=== PATIENT | female | born 1940 | race Caucasian/White ===

== ENCOUNTER 2018-12-30 11:50 | Emergency (ER) | payer MEDICARE, OTHER ==
[~2018-12-30] VITALS: Ht 154.9 cm; Wt 75.9 kg
[~2018-12-30 11:50] MED LIST: ATOR20TA66 PO; FLAX100031 PO; FLO0.4C PO; IBUP-1986 PO; LANS30CA56 PO; LEVO25TA2 PO; LOSA25TA41 PO; MULT1TAB74 PO; PARO12.52 PO; TRAM50TA2 PO
[2018-12-30 11:53] VITALS: BP 117/81
[2018-12-30 12:28] LABS: BASOPHILS % (AUTO) 0.7 % (0-1); EOSINOPHILS # (AUTO) 0.1 X10'3 (0-0.9); EOSINOPHILS % (AUTO) 2.2 % (0-6); HEMATOCRIT 31.4 % (35.0-45.0); HEMOGLOBIN 10.8 g/dl (12.0-16.0); LYMPHOCYTES # (AUTO) 1.5 X10'3 (1.1-4.8); LYMPHOCYTES % (AUTO) 26.7 % (21-51); MEAN CORPUSCULAR HEMOGLOBIN 30.4 PG (27.0-31.0); MEAN CORPUSCULAR HGB CONC 34.4 g/dL (33.0-36.5); MEAN CORPUSCULAR VOLUME 88.2 FL (78-98); MEAN PLATELET VOLUME 7.3 FL (7.4-10.4); MONOCYTES # (AUTO) 0.5 X10'3 (0-0.9); MONOCYTES % (AUTO) 9.5 % (2-12); NEUTROPHILS # (AUTO) 3.4 X10'3 (1.8-7.7); NEUTROPHILS % (AUTO) 60.9 % (42-75); PLATELET COUNT 235 X10'3 (140-440); RED BLOOD COUNT 3.56 X10'6 (4.20-5.60); RED CELL DISTRIBUTION WIDTH 13.8 % (11.5-14.5); WHITE BLOOD COUNT 5.7 X10'3 (4.5-11.0)
[2018-12-30 12:44] LABS: ALANINE AMINOTRANSFERASE 22 U/L (12-78); ALBUMIN 3.7 G/DL (3.4-5.0); ALKALINE PHOSPHATASE 78 IU/L (46-116); ANION GAP 9 (8-16); ASPARTATE AMINO TRANSFERASE 24 U/L (10-37); BILIRUBIN,TOTAL 0.4 MG/DL (0.1-1.0); BLOOD UREA NITROGEN 18 MG/DL (7-18); BUN/CREATININE RATIO 11.5 (6.6-38.0); CALCIUM 9.4 MG/DL (8.5-10.1); CHLORIDE 101 MMOL/L (99-107); CREATININE 1.57 MG/DL (0.40-0.90); GLUCOSE 98 MG/DL (70-104); PARTIAL THROMBOPLASTIN TIME 26 SECONDS (22-32); POTASSIUM 3.4 MMOL/L (3.5-5.1); PROTHROMBIN TIME 10.1 SECONDS (9.0-12.0); SODIUM 138 MMOL/L (135-145); TOTAL CARBON DIOXIDE 27.8 MMOL/L (24-32); TOTAL PROTEIN 7.3 G/DL (6.4-8.2); eGFR 32 ML/MIN
== END 2018-12-30 15:27 | disposition left against medical advice (07) ==
LOC: ER 11:51
DX: R07.9 Chest pain, unspecified (principal); Z53.21 Procedure and treatment not carried out due to patient leaving prior to being seen by health care provider
CPT/HCPCS: 36415; 71045; 80053; 84484; 85025; 85610; 85730; 93005

== ENCOUNTER 2019-11-11 10:10 | Emergency (ER) | payer MEDICARE, OTHER ==
[~2019-11-11] VITALS: Ht 154.9 cm; Wt 56.9 kg
[~2019-11-11 10:10] MED LIST changes: -FLO0.4C PO
--- NOTE | 2019-11-11 10:39 | NUR ---
DR. SHOOK AT BEDSIDE.
[2019-11-11] MEDS ORDERED: ondansetron/PF 4mg/2ml inj IV ONE ×2 (10:45→12:35)
[2019-11-11] MEDS ORDERED: morphine 4 MG/ML inj SYRINge IV ONE (10:45)
[2019-11-11] MEDS ORDERED: normal saline 1000ML IV soln IVB ONE (10:45)
[2019-11-11 10:55] LABS: BASOPHILS # (AUTO) 0.1 X10'3 (0-0.2); BASOPHILS % (AUTO) 0.8 % (0-1); EOSINOPHILS # (AUTO) 0.1 X10'3 (0-0.9); EOSINOPHILS % (AUTO) 0.9 % (0-6); HEMOGLOBIN 11.6 g/dl (12.0-16.0); LYMPHOCYTES # (AUTO) 1.2 X10'3 (1.1-4.8); LYMPHOCYTES % (AUTO) 15.2 % (21-51); MEAN CORPUSCULAR HEMOGLOBIN 29.6 PG (27.0-31.0); MEAN CORPUSCULAR HGB CONC 33.3 g/dL (33.0-36.5); MEAN PLATELET VOLUME 7.2 FL (7.4-10.4); MONOCYTES # (AUTO) 0.7 X10'3 (0-0.9); MONOCYTES % (AUTO) 8.9 % (2-12); NEUTROPHILS # (AUTO) 5.7 X10'3 (1.8-7.7); NEUTROPHILS % (AUTO) 74.2 % (42-75); PLATELET COUNT 236 X10'3 (140-440); RED BLOOD COUNT 3.93 X10'6 (4.20-5.60); RED CELL DISTRIBUTION WIDTH 13.8 % (11.5-14.5); WHITE BLOOD COUNT 7.6 X10'3 (4.5-11.0)
[2019-11-11 11:08] LABS: ALANINE AMINOTRANSFERASE 27 U/L (12-78); ALBUMIN 4.2 G/DL (3.4-5.0); ALBUMIN/GLOBULIN RATIO 1.2 (1.1-1.5); ALKALINE PHOSPHATASE 84 IU/L (46-116); AMYLASE 61 U/L (25-115); ANION GAP 10 (8-16); ASPARTATE AMINO TRANSFERASE 30 U/L (10-37); BILIRUBIN,TOTAL 0.6 MG/DL (0.1-1.0); BLOOD UREA NITROGEN 23 MG/DL (7-18); CALCIUM 9.3 MG/DL (8.5-10.1); CHLORIDE 99 MMOL/L (99-107); CREATININE 1.44 MG/DL (0.40-0.90); GLUCOSE 93 MG/DL (70-104); LIPASE 103 U/L (73-393); SODIUM 134 MMOL/L (135-145); TOTAL CARBON DIOXIDE 25.5 MMOL/L (24-32); TOTAL PROTEIN 7.7 G/DL (6.4-8.2); eGFR 35 ML/MIN
[2019-11-11 11:10] LABS: POTASSIUM 5.1 MMOL/L (3.5-5.1)
[2019-11-11 11:19] LABS: CLARITY,URINE CLEAR (Clear); COLOR,URINE STRAW (Yellow); GLUCOSE, URINE NEGATIVE (Neg); KETONES,URINE NEGATIVE (Neg); LEUKOCYTE ESTERASE ,URINE NEGATIVE (Neg); NITRITES, URINE NEGATIVE (Neg); OCCULT BLOOD,URINE SMALL (Neg); PROTEIN,URINE NEGATIVE (Neg); UROBILINOGEN,URINE 0.2 E.U/dL (0.2-1.0)
[2019-11-11 11:21] LABS: UA COLLECTION TYPE STRAIGHT CATH
[2019-11-11 11:25] LABS: BACTERIA,URINE FEW /HPF (Neg); RBC,URINE 0-2 /HPF (0-2); SQUAMOUS EPITHELIAL CELL,UR NONE SEEN /LPF (FEW); WBC,URINE 0-4 /HPF (0-4)
[2019-11-11 11:26] LABS: AMORPHOUS PHOSPHATES 1+; MUCUS STRANDS NONE SEEN /LPF (Neg); TRANSITIONAL EPI CELLS,URINE FEW /HPF
[2019-11-11] MEDS ORDERED: ketorolac trometh. 30mg/ml inj. IV ONE (12:35)
[2019-11-11] MEDS ORDERED: proCHLORperazine 10 MG/2 ml inj IV ONE (13:00)
[2019-11-11] MEDS ORDERED: ONDA4TAB12 PO (13:26)
[2019-11-11] MEDS ORDERED: HYDR-4384 PO (13:26)
[2019-11-11 13:51] VITALS: BP 139/65
== END 2019-11-11 14:00 | disposition home or self-care (01) ==
LOC: ER 10:10
DX: N20.0 Calculus of kidney (principal); R11.2 Nausea with vomiting, unspecified; Z90.49 Acquired absence of other specified parts of digestive tract; Z88.0 Allergy status to penicillin; Z88.5 Allergy status to narcotic agent; Z88.1 Allergy status to other antibiotic agents; Z79.899 Other long term (current) drug therapy
CPT/HCPCS: 36415; 74176; 80053; 81001; 82150; 83690; 85025; 93005; 96361; 96374; 96375; 96376; 99284; J0780; J1885; J2270; J2405; J7030

== ENCOUNTER 2019-11-23 15:47 | Emergency (ER) | payer MEDICARE, OTHER ==
[~2019-11-23] VITALS: Ht 154.9 cm; Wt 63.6 kg
[~2019-11-23 15:47] MED LIST changes: +ONDA4TAB12 PO
[2019-11-23] MEDS ORDERED: lactulose 20gm/30ml cup PO ONE (15:55)
[2019-11-23] MEDS ORDERED: magnesium hydroxide 30ml (MOM) UD suspension PO ONE (15:55)
[2019-11-23] MEDS ORDERED: LORazepam 1 MG tablet PO ONE (15:55)
--- NOTE | 2019-11-23 16:05 | NUR ---
PT IS A POOR HISTORIAN DT MEMORY ISSUES. SHOULD BE HERE SHORTLY
[2019-11-23] MEDS ORDERED: methylnaltrexone br 12mg/0.6ml inj***SubQ only SQ ONE (16:35)
--- NOTE | 2019-11-23 16:38 | NUR ---
tay [phone] [facility] [phone] call with changes or update
[2019-11-23] MEDS ORDERED: morphine 4 MG/ML inj SYRINge IV ONE (16:40)
[2019-11-23] MEDS ORDERED: normal saline 1000ML IV soln IVB ONE (16:40)
[2019-11-23] MEDS ORDERED: ondansetron/PF 4mg/2ml inj IV ONE (16:40)
[2019-11-23 17:08] LABS: BASOPHILS # (AUTO) 0.1 X10'3 (0-0.2); EOSINOPHILS # (AUTO) 0.1 X10'3 (0-0.9); EOSINOPHILS % (AUTO) 1.7 % (0-6); HEMATOCRIT 34.4 % (35.0-45.0); HEMOGLOBIN 11.7 g/dl (12.0-16.0); LYMPHOCYTES # (AUTO) 1.7 X10'3 (1.1-4.8); LYMPHOCYTES % (AUTO) 22.7 % (21-51); MEAN CORPUSCULAR HEMOGLOBIN 29.9 PG (27.0-31.0); MEAN CORPUSCULAR HGB CONC 34.1 g/dL (33.0-36.5); MEAN CORPUSCULAR VOLUME 87.8 FL (78-98); MEAN PLATELET VOLUME 7.1 FL (7.4-10.4); MONOCYTES # (AUTO) 0.8 X10'3 (0-0.9); MONOCYTES % (AUTO) 11.1 % (2-12); NEUTROPHILS # (AUTO) 4.7 X10'3 (1.8-7.7); NEUTROPHILS % (AUTO) 63.5 % (42-75); PLATELET COUNT 263 X10'3 (140-440); RED BLOOD COUNT 3.91 X10'6 (4.20-5.60); RED CELL DISTRIBUTION WIDTH 13.4 % (11.5-14.5); WHITE BLOOD COUNT 7.4 X10'3 (4.5-11.0)
[2019-11-23] MEDS ORDERED: HYDROcodone/acetaminophen 5mg/325mg tablet PO ONE (17:25)
[2019-11-23] MEDS ORDERED: QUEtiapine 25mg tablet PO SCH (17:25)
[2019-11-23 17:26] LABS: ALANINE AMINOTRANSFERASE 26 U/L (12-78); ALBUMIN 3.9 G/DL (3.4-5.0); ALBUMIN/GLOBULIN RATIO 1.1 (1.1-1.5); ALKALINE PHOSPHATASE 89 IU/L (46-116); ANION GAP 11 (8-16); ASPARTATE AMINO TRANSFERASE 18 U/L (10-37); BILIRUBIN,TOTAL 0.3 MG/DL (0.1-1.0); BLOOD UREA NITROGEN 37 MG/DL (7-18); BUN/CREATININE RATIO 24.5 (6.6-38.0); CHLORIDE 103 MMOL/L (99-107); CREATININE 1.51 MG/DL (0.40-0.90); GLUCOSE 92 MG/DL (70-104); SODIUM 137 MMOL/L (135-145); TOTAL CARBON DIOXIDE 23.5 MMOL/L (24-32); TOTAL PROTEIN 7.5 G/DL (6.4-8.2); eGFR 33 ML/MIN
[2019-11-23 17:35] VITALS: BP 139/80
[2019-11-23 18:30] LABS: CLARITY,URINE CLEAR (Clear); COLOR,URINE YELLOW (Yellow); GLUCOSE, URINE NEGATIVE (Neg); KETONES,URINE NEGATIVE (Neg); LEUKOCYTE ESTERASE ,URINE NEGATIVE (Neg); NITRITES, URINE NEGATIVE (Neg); OCCULT BLOOD,URINE SMALL (Neg); PH,URINE 6.5 (4.8-8.0); PROTEIN,URINE NEGATIVE (Neg); UROBILINOGEN,URINE 0.2 E.U/dL (0.2-1.0)
[2019-11-23 18:44] LABS: UA COLLECTION TYPE OTHER
[2019-11-23 18:46] LABS: HYALINE CASTS 0-3 /LPF (NEGATIVE); MUCUS STRANDS FEW /LPF (Neg); SQUAMOUS EPITHELIAL CELL,UR FEW /LPF (FEW)
[2019-11-23 18:47] LABS: BACTERIA,URINE FEW /HPF (Neg); WBC,URINE 0-4 /HPF (0-4)
== END 2019-11-23 18:33 | disposition home or self-care (01) ==
LOC: ER 15:48
DX: N20.0 Calculus of kidney (principal); K59.00 Constipation, unspecified; F03.90 Unspecified dementia, unspecified severity, without behavioral disturbance, psychotic disturbance, mood disturbance, and anxiety; Z90.49 Acquired absence of other specified parts of digestive tract; Z88.0 Allergy status to penicillin; Z88.5 Allergy status to narcotic agent; Z79.899 Other long term (current) drug therapy
CPT/HCPCS: 36415; 80053; 81001; 85025; 96374; 96375; 99284; J2270; J2405; J7030

== ENCOUNTER 2020-08-08 09:00 | Emergency (ER) | payer MEDICARE, OTHER ==
[~2020-08-08] VITALS: Ht 157.5 cm; Wt 60.0 kg
[~2020-08-08 09:00] MED LIST changes: +MULT-620 PO; -MULT1TAB74 PO; -PARO12.52 PO; +PARO12.53 PO
[2020-08-08] MEDS ORDERED: LORazepam 2 mg/ml vial IV ONE (09:20)
[2020-08-08] MEDS ORDERED: normal saline 1000ML IV soln IV ONE (09:20)
[2020-08-08 09:36] LABS: EOSINOPHILS # (AUTO) 0.2 X10'3 (0-0.9); HEMATOCRIT 35.7 % (35.0-45.0); LYMPHOCYTES # (AUTO) 1.3 X10'3 (1.1-4.8)
[2020-08-08 09:38] LABS: BASOPHILS # (AUTO) 0.1 X10'3 (0-0.2); BASOPHILS % (AUTO) 1.2 % (0-1); EOSINOPHILS % (AUTO) 3.1 % (0-6); LYMPHOCYTES % (AUTO) 21.1 % (21-51); MEAN CORPUSCULAR HEMOGLOBIN 29.9 PG (27.0-31.0); MEAN CORPUSCULAR HGB CONC 33.7 g/dL (33.0-36.5); MEAN CORPUSCULAR VOLUME 88.7 FL (78-98); MEAN PLATELET VOLUME 7.2 FL (7.4-10.4); MONOCYTES # (AUTO) 0.7 X10'3 (0-0.9); MONOCYTES % (AUTO) 10.7 % (2-12); NEUTROPHILS # (AUTO) 3.9 X10'3 (1.8-7.7); NEUTROPHILS % (AUTO) 63.9 % (42-75); PLATELET COUNT 244 X10'3 (140-440); RED BLOOD COUNT 4.02 X10'6 (4.20-5.60); RED CELL DISTRIBUTION WIDTH 13.6 % (11.5-14.5); WHITE BLOOD COUNT 6.1 X10'3 (4.5-11.0)
--- NOTE | 2020-08-08 09:53 | NUR ---
Pt to CT
[2020-08-08 09:54] LABS: ALANINE AMINOTRANSFERASE 23 U/L (12-78); ALBUMIN 3.8 G/DL (3.4-5.0); ALKALINE PHOSPHATASE 87 IU/L (46-116); ANION GAP 8 (8-16); ASPARTATE AMINO TRANSFERASE 20 U/L (10-37); BILIRUBIN,TOTAL 0.5 MG/DL (0.1-1.0); BLOOD UREA NITROGEN 31 MG/DL (7-18); BUN/CREATININE RATIO 22.1 (6.6-38.0); CALCIUM 9.3 MG/DL (8.5-10.1); CHLORIDE 106 MMOL/L (99-107); GLUCOSE 96 MG/DL (70-104); POTASSIUM 4.1 MMOL/L (3.5-5.1); SODIUM 138 MMOL/L (135-145); TOTAL CARBON DIOXIDE 23.9 MMOL/L (24-32); TOTAL PROTEIN 7.6 G/DL (6.4-8.2); eGFR 36 ML/MIN
[2020-08-08 09:55] LABS: ETHANOL < 0.010 GM/DL (0.0-0.010)
[2020-08-08 10:15] VITALS: BP 135/56
--- NOTE | 2020-08-08 10:42 | NUR ---
Spoke to , Surendra. He states he will leave his home now to come get pt, ETA approx 15 minutes.
--- NOTE | 2020-08-08 10:47 | NUR ---
Pt gait tested with PCT at her side. Pt tolerated well, ambulated with steady gait.
== END 2020-08-08 11:11 | disposition home or self-care (01) ==
LOC: ER 09:00
DX: F41.0 Panic disorder [episodic paroxysmal anxiety] (principal); Z90.49 Acquired absence of other specified parts of digestive tract; Z98.890 Other specified postprocedural states; Z88.0 Allergy status to penicillin; Z88.5 Allergy status to narcotic agent; Z88.8 Allergy status to other drugs, medicaments and biological substances; Z79.899 Other long term (current) drug therapy
CPT/HCPCS: 36415; 70450; 80053; 80320; 85025; 93005; 96361; 96374; 99285; J2060; J7030

== ENCOUNTER 2021-08-31 23:32 | Emergency (ER) | payer MEDICARE, OTHER ==
[~2021-08-31] VITALS: Ht 157.5 cm; Wt 67.7 kg
[2021-08-31] MEDS ORDERED: TETanus/Pertussis (Acell)/Diphther VAC/PF (Tdap-Adult) 0.5ml syringe IMVAC ONE (23:40)
[2021-08-31] MEDS ORDERED: LIDOcaine 1% W/epiNEPHrine 1:200,000 10ml vial IJ ONE (23:40)
[2021-09-01] MEDS ORDERED: LIDOcaine 1% w/epiNEPHrine 1:200,000 30ml vial IJ ONE (00:35)
[2021-09-01 00:43] VITALS: BP 136/117
== END 2021-09-01 04:52 | disposition home or self-care (01) ==
LOC: ER 23:32
DX: S01.01XA Laceration without foreign body of scalp, initial encounter (principal); S51.011A Laceration without foreign body of right elbow, initial encounter; S09.90XA Unspecified injury of head, initial encounter; Z90.49 Acquired absence of other specified parts of digestive tract; Z98.890 Other specified postprocedural states; Z88.0 Allergy status to penicillin; Z88.1 Allergy status to other antibiotic agents; Z88.8 Allergy status to other drugs, medicaments and biological substances; Z79.899 Other long term (current) drug therapy; W22.8XXA Striking against or struck by other objects, initial encounter; Y93.89 Activity, other specified; Y92.89 Other specified places as the place of occurrence of the external cause; Y99.8 Other external cause status
CPT/HCPCS: 12001; 70450; 72125; 73080; 73110; 90471; 90715; 99285

== ENCOUNTER 2021-09-10 12:35 | Emergency (ER) | payer MEDICARE, OTHER ==
[~2021-09-10] VITALS: Ht 157.5 cm; Wt 70.9 kg
[2021-09-10] MEDS ORDERED: normal saline 1000ML IV soln IVB ONE (12:40)
[2021-09-10 13:03] LABS: BASOPHILS # (AUTO) 0.1 X10'3 (0-0.2); BASOPHILS % (AUTO) 1.9 % (0-1); EOSINOPHILS # (AUTO) 0.2 X10'3 (0-0.9); EOSINOPHILS % (AUTO) 3.7 % (0-6); HEMATOCRIT 31.1 % (35.0-45.0); HEMOGLOBIN 10.3 g/dl (12.0-16.0); LYMPHOCYTES # (AUTO) 1.1 X10'3 (1.1-4.8); LYMPHOCYTES % (AUTO) 22.2 % (21-51); MEAN CORPUSCULAR HEMOGLOBIN 29.5 PG (27.0-31.0); MEAN CORPUSCULAR HGB CONC 33.2 g/dL (33.0-36.5); MEAN CORPUSCULAR VOLUME 88.9 FL (78-98); MEAN PLATELET VOLUME 6.9 FL (7.4-10.4); MONOCYTES # (AUTO) 0.6 X10'3 (0-0.9); MONOCYTES % (AUTO) 12.3 % (2-12); NEUTROPHILS % (AUTO) 59.9 % (42-75); PLATELET COUNT 258 X10'3 (140-440); RED CELL DISTRIBUTION WIDTH 14.4 % (11.5-14.5)
[2021-09-10 13:19] LABS: ALANINE AMINOTRANSFERASE 37 U/L (12-78); ALBUMIN 3.6 G/DL (3.4-5.0); ALBUMIN/GLOBULIN RATIO 0.9 (1.1-1.5); ALKALINE PHOSPHATASE 118 IU/L (46-116); ANION GAP 7 (8-16); ASPARTATE AMINO TRANSFERASE 40 U/L (10-37); BILIRUBIN,TOTAL 0.4 MG/DL (0.1-1.0); BLOOD UREA NITROGEN 35 MG/DL (7-18); BUN/CREATININE RATIO 19.2 (6.6-38.0); CALCIUM 8.4 MG/DL (8.5-10.1); CHLORIDE 106 MMOL/L (99-107); CREATININE 1.82 MG/DL (0.40-0.90); GLUCOSE 102 MG/DL (70-104); POTASSIUM 4.9 MMOL/L (3.5-5.1); SODIUM 138 MMOL/L (135-145); TOTAL CARBON DIOXIDE 25.4 MMOL/L (24-32); TOTAL PROTEIN 7.4 G/DL (6.4-8.2); eGFR 27 ML/MIN
[2021-09-10] MEDS ORDERED: iohexol 350MG/ML 100ml bottle IV ONE (13:31)
[2021-09-10 14:14] LABS: CLARITY,URINE CLEAR (Clear); COLOR,URINE YELLOW (Yellow); UA COLLECTION TYPE STRAIGHT CATH
[2021-09-10 14:15] LABS: GLUCOSE, URINE NEGATIVE (Neg); KETONES,URINE NEGATIVE (Neg); LEUKOCYTE ESTERASE ,URINE NEGATIVE (Neg); NITRITES, URINE NEGATIVE (Neg); OCCULT BLOOD,URINE NEGATIVE (Neg); PROTEIN,URINE NEGATIVE (Neg); UROBILINOGEN,URINE 0.2 E.U/dL (0.2-1.0)
--- NOTE | 2021-09-10 15:31 | NUR ---
CALLED [facility] AND GIVEN REPORT TO FREDDY AT THE FACILITY ,INFORMED THAT HEAD CT AND URINE ANALYSIS ARE REASSURING ,PT WAS COOPERATIVE AND REDIRECTABLE .NO DISTRESS NOTED. PER FREDDY THEY WILL ARRANGE TRASPORTATION FOR PT AND CALL US..
[2021-09-10 16:17] VITALS: BP 143/70
== END 2021-09-10 16:26 | disposition home or self-care (01) ==
LOC: ER 12:36
DX: R41.82 Altered mental status, unspecified (principal); R53.81 Other malaise; G30.1 Alzheimer's disease with late onset; F02.80 Dementia in other diseases classified elsewhere, unspecified severity, without behavioral disturbance, psychotic disturbance, mood disturbance, and anxiety; Z90.49 Acquired absence of other specified parts of digestive tract; Z88.0 Allergy status to penicillin; Z88.1 Allergy status to other antibiotic agents; Z88.8 Allergy status to other drugs, medicaments and biological substances; Z79.899 Other long term (current) drug therapy
CPT/HCPCS: 36415; 70450; 71045; 71275; 74174; 80053; 81003; 82140; 82948; 85025; 93005; 99285; J7030; Q9967

== ENCOUNTER 2022-01-26 10:27 | Inpatient (IN) | payer MEDICARE, OTHER ==
[~2022-01-26] VITALS: Ht 170.2 cm; Wt 72.7 kg
[~2022-01-26 10:27] MED LIST changes: -PARO12.53 PO; +[UNRECOGNIZED DRUG - CODE] PO
--- NOTE | 2022-01-26 10:52 | NUR ---
Tremors with awakening. Abdomen firm and round, tender upon palpation. MD notified. [facility] 8
[2022-01-26] MEDS ORDERED: LIDOcaine 2% 10ml TOPICAL JELLY (Urojet) TP ONE (11:00)
--- NOTE | 2022-01-26 11:57 | NUR ---
Mata 16f inserted, no complications. Pt cleaned up. Skin breakdown on sacrum with excoriation. 300ml clear light yellow UA. UA sent to lab.
[2022-01-26 12:14] LABS: CLARITY,URINE CLEAR (Clear); COLOR,URINE YELLOW (Yellow); GLUCOSE, URINE NEGATIVE (Neg); KETONES,URINE NEGATIVE (Neg); LEUKOCYTE ESTERASE ,URINE NEGATIVE (Neg); NITRITES, URINE NEGATIVE (Neg); OCCULT BLOOD,URINE TRACE-INTACT (Neg); PROTEIN,URINE NEGATIVE (Neg); UROBILINOGEN,URINE 0.2 E.U/dL (0.2-1.0)
[2022-01-26 12:15] LABS: UA COLLECTION TYPE CLN CATCH MIDSTREAM
[2022-01-26 12:19] LABS: URINE AMPHETAMINE SCREEN NEGATIVE (Neg); URINE BARBITUATE SCREEN NEGATIVE (Neg); URINE BENZODIAZEPINES SCREEN NEGATIVE (Neg); URINE CANNABINOID SCREEN POSITIVE (Neg); URINE COCAINE SCREEN NEGATIVE (Neg); URINE METHADONE SCREEN NEGATIVE (Neg); URINE OPIATE SCREEN NEGATIVE (Neg); URINE PHENCYCLIDINE SCREEN NEGATIVE (Neg)
--- NOTE | 2022-01-26 12:20 | NUR ---
Nurse at [facility] called and states that pt usually walks around, talks/responds appropriately to staff questions, however is confused. This mental status is abnormal for her.
[2022-01-26 12:27] LABS: BACTERIA,URINE NONE SEEN /HPF (Neg); RBC,URINE 0-2 /HPF (0-2); SQUAMOUS EPITHELIAL CELL,UR NONE SEEN /LPF (FEW); WBC,URINE NONE SEEN /HPF (0-4)
[2022-01-26 13:07] LABS: BASOPHILS % (AUTO) 0.5 % (0-1); EOSINOPHILS % (AUTO) 0.5 % (0-6); HEMATOCRIT 27.9 % (35.0-45.0); HEMOGLOBIN 9.2 g/dl (12.0-16.0); LYMPHOCYTES # (AUTO) 0.9 X10'3 (1.1-4.8); LYMPHOCYTES % (AUTO) 12.6 % (21-51); MEAN CORPUSCULAR HEMOGLOBIN 30.4 PG (27.0-31.0); MEAN CORPUSCULAR HGB CONC 33.1 g/dL (33.0-36.5); MEAN CORPUSCULAR VOLUME 91.8 FL (78-98); MEAN PLATELET VOLUME 7.8 FL (7.4-10.4); MONOCYTES # (AUTO) 1.1 X10'3 (0-0.9); MONOCYTES % (AUTO) 15.2 % (2-12); NEUTROPHILS # (AUTO) 5.2 X10'3 (1.8-7.7); NEUTROPHILS % (AUTO) 71.2 % (42-75); PLATELET COUNT 225 X10'3 (140-440); RED BLOOD COUNT 3.04 X10'6 (4.20-5.60); RED CELL DISTRIBUTION WIDTH 14.5 % (11.5-14.5); WHITE BLOOD COUNT 7.3 X10'3 (4.5-11.0)
[2022-01-26 13:16] LABS: AMMONIA < 10 UMOL/L (11-32); LACTIC SEPSIS 2.1 MMOL/L (0.4-2.0)
--- NOTE | 2022-01-26 13:30 | NUR ---
Pt sleeping, no apparent distress or needs at this time.
[2022-01-26 13:32] LABS: ALANINE AMINOTRANSFERASE 20 U/L (12-78); ALBUMIN 2.8 G/DL (3.4-5.0); ALBUMIN/GLOBULIN RATIO 0.7 (1.1-1.5); ALKALINE PHOSPHATASE 61 IU/L (46-116); ANION GAP 9 (8-16); ASPARTATE AMINO TRANSFERASE 24 U/L (10-37); BILIRUBIN,TOTAL 0.2 MG/DL (0.1-1.0); BLOOD UREA NITROGEN 18 MG/DL (7-18); BUN/CREATININE RATIO 17.3 (6.6-38.0); CALCIUM 7.9 MG/DL (8.5-10.1); CHLORIDE 102 MMOL/L (99-107); CREATININE 1.04 MG/DL (0.40-0.90); GLUCOSE 80 MG/DL (70-104); POTASSIUM 4.5 MMOL/L (3.5-5.1); SODIUM 137 MMOL/L (135-145); TOTAL CARBON DIOXIDE 26.2 MMOL/L (24-32); TOTAL PROTEIN 6.6 G/DL (6.4-8.2); eGFR 51 ML/MIN
[2022-01-26 13:39] LABS: ETHANOL < 0.010 GM/DL (0.0-0.010)
[2022-01-26] MEDS ORDERED: acetaminophen 325mg tablet PO PRN ×2 (14:15)
[2022-01-26] MEDS ORDERED: magnesium Cl slow-release 64mg tablet PO PRN (14:15)
[2022-01-26] MEDS ORDERED: magnesium 4gm in 100ml NS 100 ML IV PRN (14:15)
[2022-01-26] MEDS ORDERED: potassium Cl 20 mEq SR tablet PO PRN ×2 (14:15)
[2022-01-26] MEDS ORDERED: ondansetron/PF 4mg/2ml inj IV PRN (14:15)
[2022-01-26] MEDS ORDERED: potassium CL 10mEq/100ml bag 100 ML IV PRN (14:15)
[2022-01-26] MEDS ORDERED: magnesium 2GM in 50ml NS 50 ML IV PRN (14:15)
[2022-01-26] MEDS ORDERED: CefTRIAXone 2gm/D5W 50ml BAG 50 ML IV SCH (14:22)
[2022-01-26] MEDS: levoFLOXACIN-Levaquin 500mg/D5 100 ML IV SCH (15:03)
[2022-01-26] MEDS: normal saline 1000ml 1,000 ML IV SCH (15:09)
--- NOTE | 2022-01-26 15:30 | NUR ---
Antibiotics and fluids infusing. Pt has no apparent distress at this time.
[2022-01-26] MEDS ORDERED: CALC500T99 PO (17:27)
[2022-01-26] MEDS ORDERED: CEFD300C17 PO (17:27)
[2022-01-26] MEDS ORDERED: ACET-1123 PO (17:27)
[2022-01-26] MEDS ORDERED: TRAZ-251 PO (17:27)
[2022-01-26] MEDS ORDERED: ZIPR60CA7 PO (17:27)
[2022-01-26] MEDS ORDERED: DIVA125C10 PO (17:27)
--- NOTE | 2022-01-26 17:42 | NUR ---
Pt awake. Starring at the ceiling. pt crying and holding head. Unable to roll to side, needs help to reposition.
--- NOTE | 2022-01-26 18:07 | NUR ---
mentioned pt's possible discomfort/pain to MD Abby MD stated that she will not give anything for discomfort, but she can eat or whatever she needs.
[2022-01-26] MEDS: dexamethasone 6 MG in D5W 100ml IV soln IV SCH (19:46)
[2022-01-26] MEDS: K and/or MAG REPLACEMENT MC SCH (20:00)
[2022-01-26] MEDS ORDERED: dexamethasone 4mg/ml inj IV SCH (20:00)
[2022-01-26] MEDS ORDERED: dexamethasone 6 MG in D5W 100ml IV soln IV SCH (20:00)
[2022-01-26] MEDS ORDERED: temazepam 15mg capsule PO PRN (21:00)
[2022-01-26] MEDS: heparin, porcine 5000 units/ml vial SQ SCH (23:36)
[2022-01-27] MEDS: normal saline 1000ml 1,000 ML IV SCH ×2 (04:33→05:57)
--- NOTE | 2022-01-27 06:47 | NUR ---
Spoke with patient's , Jerome; gave update. Patient's states Alexandra Fernandes told him yesterday patient was sent to ER for low BP; patient's blood pressure within normal limits. Jerome cell: / home:
[2022-01-27 07:39] LABS: BASOPHILS % (AUTO) 0.2 % (0-1); EOSINOPHILS % (AUTO) 0 % (0-6); HEMATOCRIT 24.9 % (35.0-45.0); HEMOGLOBIN 8.4 g/dl (12.0-16.0); LYMPHOCYTES # (AUTO) 0.5 X10'3 (1.1-4.8); LYMPHOCYTES % (AUTO) 14.6 % (21-51); MEAN CORPUSCULAR HEMOGLOBIN 30.4 PG (27.0-31.0); MEAN CORPUSCULAR HGB CONC 33.6 g/dL (33.0-36.5); MEAN CORPUSCULAR VOLUME 90.3 FL (78-98); MEAN PLATELET VOLUME 7.8 FL (7.4-10.4); MONOCYTES # (AUTO) 0.3 X10'3 (0-0.9); MONOCYTES % (AUTO) 8.2 % (2-12); NEUTROPHILS # (AUTO) 2.9 X10'3 (1.8-7.7); PLATELET COUNT 228 X10'3 (140-440); RED BLOOD COUNT 2.76 X10'6 (4.20-5.60); WHITE BLOOD COUNT 3.7 X10'3 (4.5-11.0)
[2022-01-27] MEDS: K and/or MAG REPLACEMENT MC SCH (08:00)
[2022-01-27 08:07] LABS: ALANINE AMINOTRANSFERASE 17 U/L (12-78); ALBUMIN 2.5 G/DL (3.4-5.0); ALBUMIN/GLOBULIN RATIO 0.7 (1.1-1.5); ALKALINE PHOSPHATASE 52 IU/L (46-116); ANION GAP 7 (8-16); ASPARTATE AMINO TRANSFERASE 21 U/L (10-37); BILIRUBIN,TOTAL 0.3 MG/DL (0.1-1.0); BLOOD UREA NITROGEN 17 MG/DL (7-18); BUN/CREATININE RATIO 18.5 (6.6-38.0); CALCIUM 7.5 MG/DL (8.5-10.1); CHLORIDE 104 MMOL/L (99-107); CREATININE 0.92 MG/DL (0.40-0.90); GLUCOSE 93 MG/DL (70-104); POTASSIUM 4.5 MMOL/L (3.5-5.1); SODIUM 134 MMOL/L (135-145); TOTAL CARBON DIOXIDE 22.9 MMOL/L (24-32); eGFR 59 ML/MIN
[2022-01-27] MEDS: dexamethasone 6 MG in D5W 100ml IV soln IV SCH (08:32)
[2022-01-27] MEDS: levoFLOXACIN-Levaquin 500mg/D5 100 ML IV SCH (09:00)
[2022-01-27] MEDS: heparin, porcine 5000 units/ml vial SQ SCH (09:00)
--- NOTE | 2022-01-27 09:12 | NUR ---
Faxed patient medication list to pharmacy for reconciliation.
[2022-01-27] MEDS ORDERED: losartan 25mg tablet PO SCH (09:34)
[2022-01-27] MEDS ORDERED: divalproex sod 125mg sprinkle cap PO SCH (09:35)
[2022-01-27] MEDS ORDERED: PARoxetine 20mg tablet PO SCH (09:36)
[2022-01-27] MEDS ORDERED: PRED10TA23 PO (12:26)
[2022-01-27] MEDS ORDERED: LEVO500T90 PO (12:26)
[2022-01-27 13:40] VITALS: BP 143/72
--- NOTE | 2022-01-27 13:56 | NUR ---
Called patient's , Jerome, and let him know patient has been transported back to [facility].
[2022-01-27] MEDS ORDERED: atorvastatin 20mg tablet PO SCH (21:00)
[2022-01-27] MEDS ORDERED: traZODone 50mg tablet PO SCH (21:00)
== END 2022-01-27 13:44 | disposition home or self-care (01) | DRG 177 ==
LOC: ER 10:28 → UNDOADMIN 14:19 → ED HOLD 14:19
PROVIDERS: ADMIT Internal Medicine; ATTEND Internal Medicine
DX: U07.1 COVID-19 (principal); J12.82 Pneumonia due to coronavirus disease 2019; Z66 Do not resuscitate; N18.30 Chronic kidney disease, stage 3 unspecified; I95.9 Hypotension, unspecified; F03.90 Unspecified dementia, unspecified severity, without behavioral disturbance, psychotic disturbance, mood disturbance, and anxiety; F12.90 Cannabis use, unspecified, uncomplicated; I12.9 Hypertensive chronic kidney disease with stage 1 through stage 4 chronic kidney disease, or unspecified chronic kidney disease; Z51.5 Encounter for palliative care; Z88.0 Allergy status to penicillin; Z88.5 Allergy status to narcotic agent; Z88.8 Allergy status to other drugs, medicaments and biological substances; Z90.49 Acquired absence of other specified parts of digestive tract
CPT/HCPCS: 36415; 70450; 71045; 74176; 80053; 80305; 80320; 81001; 82140; 82948; 83605; 83880; 84484; 85025; 87040; 87635; 93005; 99285; G0378; J1100; J1644; J1956; J7030; J7060

== ENCOUNTER 2023-02-06 13:53 | Emergency (ER) | payer MEDICARE, OTHER ==
[~2023-02-06] VITALS: Ht 170.2 cm; Wt 63.6 kg
[~2023-02-06 13:53] MED LIST changes: +ACET-1123 PO; +CALC500T99 PO; +DIVA125C10 PO; -IBUP-1986 PO; -LANS30CA56 PO; -LEVO25TA2 PO; -ONDA4TAB12 PO; -TRAM50TA2 PO; +TRAZ-251 PO; +ZIPR60CA7 PO
[2023-02-06 14:43] LABS: BASOPHILS # (AUTO) 0.1 X10'3 (0-0.2); BASOPHILS % (AUTO) 0.3 % (0-1); EOSINOPHILS % (AUTO) 0 % (0-6); HEMATOCRIT 45.7 % (35.0-45.0); HEMOGLOBIN 14.8 g/dl (12.0-16.0); LYMPHOCYTES # (AUTO) 2.1 X10'3 (1.1-4.8); LYMPHOCYTES % (AUTO) 12.2 % (21-51); MEAN CORPUSCULAR HEMOGLOBIN 30.6 PG (27.0-31.0); MEAN CORPUSCULAR HGB CONC 32.4 g/dL (33.0-36.5); MEAN CORPUSCULAR VOLUME 94.4 FL (78-98); MEAN PLATELET VOLUME 8.6 FL (7.4-10.4); MONOCYTES # (AUTO) 2.1 X10'3 (0-0.9); MONOCYTES % (AUTO) 12.2 % (2-12); NEUTROPHILS # (AUTO) 13.2 X10'3 (1.8-7.7); NEUTROPHILS % (AUTO) 75.3 % (42-75); PLATELET COUNT 274 X10'3 (140-440); RED BLOOD COUNT 4.84 X10'6 (4.20-5.60); RED CELL DISTRIBUTION WIDTH 15.6 % (11.5-14.5); WHITE BLOOD COUNT 17.5 X10'3 (4.5-11.0)
[2023-02-06 15:00] LABS: NUCLEATED RED BLOOD CELLS 1 /100WBC (0-0); TOTAL CELLS COUNTED 100
[2023-02-06 15:01] LABS: ANISOCYTOSIS FEW; PLATELET ESTIMATE NORMAL
[2023-02-06 15:23] LABS: ALANINE AMINOTRANSFERASE 23 U/L (12-78); ALBUMIN 2.8 G/DL (3.4-5.0); ALBUMIN/GLOBULIN RATIO 0.6 (1.1-1.5); ALKALINE PHOSPHATASE 52 IU/L (46-116); ANION GAP 18 (8-16); ASPARTATE AMINO TRANSFERASE 44 U/L (10-37); BILIRUBIN,TOTAL 0.4 MG/DL (0.1-1.0); BLOOD UREA NITROGEN 47 MG/DL (7-18); BUN/CREATININE RATIO 16.8 (10.0-20.0); CALCIUM 8.8 MG/DL (8.5-10.1); CHLORIDE 116 MMOL/L (99-107); GLUCOSE 148 MG/DL (70-104); TOTAL CARBON DIOXIDE 26.5 MMOL/L (24-32); TOTAL PROTEIN 7.7 G/DL (6.4-8.2); eGFR 16 ML/MIN
[2023-02-06 15:36] LABS: POTASSIUM 2.3 MMOL/L (3.5-5.1); SODIUM 160 MMOL/L (135-145)
[2023-02-06 15:46] LABS: CLARITY,URINE CLEAR (Clear); COLOR,URINE YELLOW (Yellow); GLUCOSE, URINE NEGATIVE (Neg); KETONES,URINE NEGATIVE (Neg); LEUKOCYTE ESTERASE ,URINE NEGATIVE (Neg); NITRITES, URINE NEGATIVE (Neg); OCCULT BLOOD,URINE TRACE-INTACT (Neg); PROTEIN,URINE TRACE mg/dl (Neg); UROBILINOGEN,URINE 0.2 E.U/dL (0.2-1.0)
[2023-02-06 15:49] LABS: UA COLLECTION TYPE FOLEY CATH
[2023-02-06 15:51] LABS: BACTERIA,URINE FEW /HPF (Neg); RBC,URINE 0-2 /HPF (0-2); WBC,URINE 0-4 /HPF (0-4)
[2023-02-06 15:52] LABS: MUCUS STRANDS FEW /LPF (Neg); RENAL CELLS, URINE FEW /HPF; SQUAMOUS EPITHELIAL CELL,UR NONE SEEN /LPF (FEW)
[2023-02-06] MEDS ORDERED: normal saline 1000ML IV soln IV ONE (15:55)
[2023-02-06] MEDS ORDERED: CefTRIAXone 2gm/D5W 50ml BAG 50 ML IV ONE (15:55)
--- NOTE | 2023-02-06 15:55 | NUR ---
josiane from [facility] called for an update, which was provided
[2023-02-06] MEDS ORDERED: FURO40TA4 PO (16:10)
[2023-02-06] MEDS ORDERED: ASCO-139 PO (16:11)
[2023-02-06] MEDS ORDERED: DOCU-342 PO (16:12)
[2023-02-06] MEDS ORDERED: ZIPR40CA14 PO (16:13)
[2023-02-06] MEDS ORDERED: DIVA125T31 PO (16:14)
[2023-02-06] MEDS ORDERED: DIVA125C2 PO (16:15)
[2023-02-06] MEDS ORDERED: [UNRECOGNIZED DRUG - OTHER] PO ×2 (16:16→16:17)
[2023-02-06 16:21] LABS: POTASSIUM 2.5 MMOL/L (3.5-5.1)
[2023-02-06] MEDS ORDERED: ACET-1015 PO (16:38)
[2023-02-06] MEDS ORDERED: IBUP-1985 PO (16:39)
[2023-02-06] MEDS ORDERED: [UNRECOGNIZED DRUG - CODE] PO (16:40)
[2023-02-06] MEDS ORDERED: LORA-269 PO (16:41)
[2023-02-06] MEDS ORDERED: CEFD300C17 PO (16:42)
[2023-02-06] MEDS ORDERED: [UNRECOGNIZED DRUG - CODE] PO (16:46)
[2023-02-06] MEDS ORDERED: MENT7.6L2 PO (16:47)
[2023-02-06] MEDS ORDERED: LOPE2CAP PO (16:49)
[2023-02-06] MEDS ORDERED: MAGN400O6 PO (16:50)
[2023-02-06] MEDS ORDERED: ACET-2319 PO (16:51)
[2023-02-06] MEDS ORDERED: NEOM1OIN8 TOP (16:53)
--- NOTE | 2023-02-06 17:00 | NUR ---
GAVE THE PT'S AN UPDATE OVER THE TELEPHONE
[2023-02-06] MEDS ORDERED: Potassium Cl inj 40 MEQ in dextrose 5%-water 980 ML IV ONE (17:15)
--- NOTE | 2023-02-06 17:30 | NUR ---
SPOKE TO MICHEAL ARROYO TO ASK WHY THE PT WAS SENT HERE GIVEN THAT SHE IS ON COMFORT CARE PER THE POLST THAT WAS SENT WITH THE PT. THEY REPORTED THAT SHE WAS SENT D/T A LOW TEMPORAL TEMP OF 94F AND OF BEING CYANOTIC/PURPLE SKIN. SHE PRESENTED TO THE ER WITH A TEMP WNL AND NOT CYANOTIC/PURPLE SKIN. PROVIDER WAS MADE AWARE.
--- NOTE | 2023-02-06 18:39 | NUR ---
RECEIVED REPORT FROM KIM MON ASSUMING CARE OF PT. RESTING QUITELY IN ROOM MONITOR LEADS ON AND FUNCTIONING 100/53 96 23 100 2L NC. DC ORDERS PENDING PER KIM MON.
--- NOTE | 2023-02-06 19:53 | NUR ---
DC INSTRUCTIONS REVIEWED WITH AT 1940 ALL QUESTIONS AND CONCERNS ADDRESSED TO 'S VERBAL SATISFACTION. REQUESTED FC TO REMAIN IN PLACE FOR PT'S COMFORT. 1947 REPORT CALLED TO RECEIVING FACILITY [facility], ALL QUESTIONS AND CONCERNS ADDRESSED TO HER VERBAL SATISFACTION. FC OKAY TO REMAIN IN PLACE PER [facility]. [employer] MAINTENANCE ARRANGING TRANSPORT VIA EMS. ETA APPROX. 1 HOUR.
--- NOTE | 2023-02-06 20:29 | NUR ---
REPORT GIVEN TO [employer] [facility]. PT TRANSFER BACK TO [facility]. FC EMPTIED 300 ML NOTED IVF DISCONTINUED. FC IN PLACE.
[2023-02-06 20:31] VITALS: BP 101/65
== END 2023-02-06 20:35 ==
LOC: ER 13:53
DX: A41.9 Sepsis, unspecified organism (principal); E87.1 Hypo-osmolality and hyponatremia; E87.6 Hypokalemia; F03.90 Unspecified dementia, unspecified severity, without behavioral disturbance, psychotic disturbance, mood disturbance, and anxiety; Z79.899 Other long term (current) drug therapy; Z88.0 Allergy status to penicillin; Z88.1 Allergy status to other antibiotic agents; Z88.5 Allergy status to narcotic agent; Z88.8 Allergy status to other drugs, medicaments and biological substances
CPT/HCPCS: 36415; 71045; 80053; 81001; 83605; 84132; 84145; 84295; 85007; 85025; 87040; 93005; 96365; 96366; 96368; 99285; J0696; J3480; J7030; J7070; A4353

== ENCOUNTER 2023-02-07 07:18 | Emergency (ER) | payer MEDICARE, OTHER ==
[~2023-02-07] VITALS: Ht 157.5 cm; Wt 63.6 kg
[~2023-02-07 07:18] MED LIST changes: +ACET-1015 PO; -ACET-1123 PO; +ACET-2319 PO; +ASCO-139 PO; +CEFD300C17 PO; +DIVA125C2 PO; +DOCU-342 PO; -FLAX100031 PO; +FURO40TA4 PO; +IBUP-1985 PO; +LOPE2CAP PO; +LORA-269 PO; +MAGN400O6 PO; +MENT7.6L2 PO; -MULT-620 PO; +NEOM1OIN8 TOP; +ZIPR40CA14 PO; -ZIPR60CA7 PO; +[UNRECOGNIZED DRUG - CODE] PO; +[UNRECOGNIZED DRUG - CODE] PO; +[UNRECOGNIZED DRUG - OTHER] PO
[2023-02-07] MEDS ORDERED: ondansetron/PF 4mg/2ml inj IV ONE (07:35)
[2023-02-07] MEDS ORDERED: morphine 4 MG/ML inj SYRINge IV ONE (07:35)
[2023-02-07] MEDS ORDERED: acetaminophen 1,000mg/100ml IV 100 ML IV ONE (07:40)
[2023-02-07] MEDS ORDERED: LORazepam 2 mg/ml vial IV ONE (09:55)
--- NOTE | 2023-02-07 10:15 | NUR ---
RECEIVED CALL FROM [facility]. SPOKE WITH JENNY WHOM WAS INQUIRING ON PT STATUS AND VERIFYING IF PT "ADMITTED". INFORMED PT HAS NOT BEEN ADMITTED AND IN PROCESS OF SEEING ABOUT PT GOING BACK TO CARE FACILITY PT DNR AND TX IS FOR COMFORT MEASURES ONLY. JENNY REPORTS SHE WILL CONTACTING HER DON AND TO CALL BACK IF THEY WILL BE SENDING HOSPICE NURSE TO FACILITY. OBTAINED PHONE #
--- NOTE | 2023-02-07 11:25 | NUR ---
Pts sister here visiting pt at bedside and reports pts on his way to come see pt.
--- NOTE | 2023-02-07 11:43 | NUR ---
Pts spouse and other family members at bedside with pt. Case management is in room as well talking with family regarding care and tx measures for pt.
[2023-02-07 12:01] VITALS: BP 143/125
[2023-02-07] MEDS ORDERED: LORazepam 2 mg/ml vial IV PRN (12:20)
--- NOTE | 2023-02-07 12:24 | NUR ---
Pt spouse (POA) and family verify pt goal is comfort measures. Received VO for Morphine and Ativan from Dr. Sunshine. Received VO pt is to be taken off non-rebreather O2 and placed on 2L O2 via NC.
[2023-02-07] MEDS: morphine 2 MG/ML inj. syringe IV PRN ×2 (13:00→13:52)
--- NOTE | 2023-02-07 13:27 | NUR ---
PAGED BY RN. PATIENT IS FROM [address] [facility] DNR/COMFORT FOCUSED TREATMENT. PATIENT WAS IN ER ON 02/06 AND NOW HAS RETURNED TODAY. MD/RN CONCERNED WHY PATIENT KEEPS RETURNING TO ER. IN TO SPEAK WITH FAMILY. SPOKE WITH SPOUSE AND THEY ARE REQUESTING COMFORT CARE AND NO AGRESSIVE MEASURES. THEY ARE CONFUSED TO WHY [facility] SENT HER BACK. THEY WOULD LIKE HER TO RETURN THERE IF POSSIBLE WITH HOSPICE CARE. CALLED AND SPOKE WITH GEN AT [facility]. SHE STATED THAT PATIENT IS NOT OPEN WITH HOSPICE AGENCY. THEY ARE ABLE TO ACCEPT PATIENT BACK AT ANY TIME, HOWEVER, THEY DO NOT HAVE THE MEDICATIONS TO KEEP HER COMFORTABLE SINCE THEY ARE AN ASSISTED LIVING. THEY HAD ATTEMPTED TO OPEN PATIENT WITH [facility] BUT WERE DECLINED. CALLED AND SPOKE WITH JENNY AT [facility]. SHE STATED THAT HER DON SPOKE WITH [facility] AND THEY ARE UNABLE TO ACCEPT THEY HAVE NO RN IN OUR AREA TO OPEN THIS WEEKEND. SPOKE WITH RN AND PATIENT PLACED ON COMFORT CARE IN ER, FAMILY AT BEDSIDE AND DAUGHTER COMING UP FROM [place]. WILL CONTINUE TO MONITOR.
--- NOTE | 2023-02-07 14:33 | NUR ---
WENT TO CHECK PT AND GIVE ORDERED MORPHINE. PT FOUND NOT BREATHING, PULSE, RESP AND HEART SOUNDS AUSCULATED AND FOUND NOT PRESENT. DR JACOB NOTIFIED AND PERNOUNCED AT 1429. FAMILY AT BEDSIDE AND NOTIFIED THAT PT HAS PASSED.
--- NOTE | 2023-02-07 14:40 | NUR ---
PTS SPOUSE REQUEST PT BE RELEASED AND IN CARE TO [facility] IN [place].
--- NOTE | 2023-02-07 15:45 | NUR ---
[facility] contacted and are to come and take pt.
== END 2023-02-07 17:39 ==
LOC: ER 07:19
DX: R69 Illness, unspecified (principal); F03.90 Unspecified dementia, unspecified severity, without behavioral disturbance, psychotic disturbance, mood disturbance, and anxiety; Z90.49 Acquired absence of other specified parts of digestive tract; Z88.0 Allergy status to penicillin; Z88.1 Allergy status to other antibiotic agents; Z88.5 Allergy status to narcotic agent; Z88.8 Allergy status to other drugs, medicaments and biological substances; Z79.899 Other long term (current) drug therapy; Z79.1 Long term (current) use of non-steroidal anti-inflammatories (NSAID); Z79.2 Long term (current) use of antibiotics
CPT/HCPCS: 96374; 96375; 96376; 99285; J0131; J2060; J2270; J2405; A4615